=== PATIENT | female | born 1960 | race Caucasian/White ===

== ENCOUNTER → 2019-04-17 11:53 | Day surgery (SDC) | payer BC ==
--- NOTE | 2019-04-11 15:25 | HP ---
CC: Dr. Christen Basilio* ADMISSION HISTORY AND PHYSICAL: DATE OF ADMISSION: 04/17/19 ATTENDING SURGEON: Dr. Yash Villanueva* (KAUR Stephens dictating). CHIEF COMPLAINT: Umbilical hernia. HISTORY OF PRESENT ILLNESS: This is a generally healthy 58-year-old female who has had an umbilical bulge since she was a child. It had generally been asymptomatic until recent years, during which time it had gradually become more uncomfortable at times, particularly in association with core exercises. She also states that it has increased in size. She has never had any symptoms to suggest incarceration or strangulation. She has had no GI or changes. She was seen in the office by Dr. Villanueva on 01/31/19 at which time exam confirmed the presence of a nontender reducible hernia in the superior portion of the umbilicus. Dr. Villanueva has discussed with her the indications for repair, the methods there of, the risks, benefits and alternatives. The patient would like to proceed as scheduled with open repair umbilical hernia with mesh. PAST MEDICAL HISTORY: She is still recovering from a recent left thumb and wrist surgery done in [place] in December. She has occasional joint pains. She has a previous history of Abbasi's palsy which resolved after 2 weeks. She has a past history of GERD which is not active. PAST SURGICAL HISTORY: Left wrist and thumb surgery in December 2018, prior left breast lumpectomy for DCIS, right knee arthroscopy. CURRENT MEDICATIONS: She takes the following supplements: 1. Magnesium. 2. Vitamin D and C. 3. Fish oil. 4. She uses occasional Aleve p.r.n. DRUG ALLERGIES: None known. FAMILY HISTORY: Negative for anesthesia problems, bleeding or clotting disorders. SOCIAL HISTORY: The patient lives alone. 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 She is a former smoker, who quit approximately 20 years ago, but only moderate usage prior to that. She denies use of alcohol or recreational drugs. REVIEW OF SYSTEMS: General: No recent constitutional symptoms or acute illnesses other than described in the HPI and past medical history. HEENT: No problems reported. Cardiovascular: No history of chest pain, palpitations, or heart murmur. Respiratory: No history of asthma, chronic cough or shortness of breath. GI: No recent GERD symptoms. No lower GI symptoms. Prior colonoscopy within approximately past 5 years with no interval problems reported. : No problems reported. QUILL COLLECTOR: Breast exam done earlier this year , last Pap smear, pelvic exam done in 2016 and normal by her chart report. No interval symptoms of concern. Endocrine: No diabetes or thyroid dysfunction. Musculoskeletal: As noted above. No additions. PHYSICAL EXAMINATION GENERAL: A well-nourished, well-developed female, in no acute distress. VITAL SIGNS: Height 67 inches, weight 150 pounds, temperature 97.6, blood pressure 116/66, pulse 84, respirations 16. HEENT: Pupils equal, round and reactive. EOMs intact. Conjunctiva mildly pale. Oropharynx, teeth in good repair. No intraoral lesions. NECK: No lymphadenopathy, thyromegaly, or masses. LUNGS: Clear to auscultation. No rales or wheezes. HEART: Regular rate and rhythm. No murmur noted. BREASTS: Not examined. ABDOMEN: Soft, nontender to palpation. Supraumbilical bulge as described in the HPI. No other palpable masses. No palpable organomegaly. GENITALIA: Not done. RECTAL: Not done. BACK: No spinous process or CVA tenderness. EXTREMITIES: No edema. NEUROLOGICAL: Grossly intact. SKIN: Warm and dry. No suspicious rashes or lesions noted. IMPRESSION: Umbilical hernia. PLAN: Open repair of umbilical hernia with mesh. KAUR STEPHENS [id number]/[facility] #: [id number] LESLYE
[~2019-04-17 11:53] MED LIST: Bacitracin OINTMENT* 0.5% 0.5 oz TUBE ONE; Buffered Lidocaine 1% SYRIN* 1 ML/SYRINGE INTRADERM ONE; Bupivacaine 0.5% W/EPI SDV* 30 ML VIAL ONE; Dexamethasone IV* 4 MG/ML 1 ML (4 MG) ONE; Famotidine IV* 10 MG/ML 2 ML (20 mg) IV ONE; Famotidine IV* 10 MG/ML 2 ML (20 mg) ONE; KETAMINE HCL* 50 MG/ML 10 ML VIAL ONE; Ketorolac INJ* 30 MG/ML 1 ML VIAL ONE; Lactated Ringers 1000 ML Bag* 1,000 ML IV SCH; Lidocaine 1% INJ* 10 MG/ML 30 ML SDV ONE; Lidocaine 2% PF * 5 ML VIAL ONE; Midazolam* 1 MG/ML 10 ML VIAL (10 MG) ONE; Naloxone* 0.4 MG/ML 1 ML VIAL IV PRN; Ondansetron INJ* 2 MG/ML VIAL IV PRN; Ondansetron INJ* 2 MG/ML VIAL ONE; Propofol* 10 MG/ML 20 ML BTL ONE; ceFAZolin 2 GM PREMIX in ORs 2 GM/50 ML BAG ONE; fentaNYL* 50 MCG/ML 2 ML VIAL (100 MCG VIAL) IV PRN; fentaNYL* 50 MCG/ML 2 ML VIAL (100 MCG VIAL) ONE; oxyCODONE/Acetamin 5/325 MG* TAB PO PRN
--- NOTE | 2019-04-17 16:32 | OP ---
Operative Report - Blank - Operative Report Date of Operation: 04/17/19 Note: Brief Operative Note Preop Dx: umbilical hernia Postop Dx: same Procedure: open repair umbilical hernia w/ mesh Anesthesia: local MAC Surgeon: Rich Furnace Combustion Analyst: KAUR Galarza Fluids: 1000 ml RL EBL: none Specimen: none Drains: none Findings: dictated
[2019-04-17 17:01] VITALS: BP 85/67
--- NOTE | 2019-04-18 20:03 | OP ---
CC: Primary Care Doctor, Kyleigh Luque MD * DATE OF OPERATION: 04/17/19 - SDS DATE OF : 56 SURGEON: Yash Villanueva MD TECHNICAL BUSINESS ANALYST: KAUR Stephens ANESTHESIOLOGIST: Dr. Lancaster. ANESTHESIA: Local MAC anesthesia. PRE-OP DIAGNOSIS: Umbilical hernia. POST-OP DIAGNOSIS: Epigastric hernia. OPERATIVE PROCEDURE: Open epigastric hernia repair with mesh. ESTIMATED BLOOD LOSS: Minimal blood loss. FLUIDS: 1 L of crystalloid fluid given. SPECIMENS: None. DESCRIPTION OF PROCEDURE: The patient was identified in the preoperative area. Her abdomen was marked. Consent was signed. She was taken to the operating room, placed on the operating table in the supine position. Preoperative antibiotics were given. Sequential devices were placed on bilateral lower extremities. Gentle sedation was given. The patient's abdomen was prepped and draped in standard surgical fashion and a time-out was performed. Previously noted hernia at the periumbilical region was identified. Injection of lidocaine around the umbilicus was made. An up and down incision was made above the umbilicus and deepened down to a hernia sac. This was taken down to the fascia at the epigastric region. I lysed the hernia sac off of the anterior fascia and dropped this back into the likely preperitoneal space. We dissected the plane posterior to the anterior fascia that would encompass a mesh. The defect itself was about 1.5 cm with a similar laxity just inferior to this that was approximately 1 cm in size. I dissected down to the umbilical stalk. I did my place my finger into the hernia to try to identify if there is a true umbilical hernia and I did not appreciate one. Next, a 4.3 ventral mesh was then inserted in the appropriate orientation. It overlapped the inferior hernia site as well as most of the umbilical area. The mesh was allowed to unfurl in the preperitoneal space and it was sutured in the appropriate fashion inferiorly and superiorly with a 0 Surgipro suture. I used Prolene sutures to reapproximate the defect as well and we irrigated and closed the incision in the standard fashion. Sterile dressing was applied. The patient tolerated the procedure well and was transferred to the PACU in stable condition. [id number]/[facility] #: [id number] [facility]phanie
== END | disposition home or self-care (01) ==
LOC: OR 11:53
PROVIDERS: ATTEND Surgery
DX: K43.9 Ventral hernia without obstruction or gangrene (principal); Z85.3 Personal history of malignant neoplasm of breast
CPT/HCPCS: A9270-GY; C1781; J0690; J1100; J1885; J2250; J2405; J2704; J3010